=== PATIENT | male | born 1935 | race Caucasian/White ===

== ENCOUNTER 2017-05-27 09:13 | Emergency (ER) | payer MEDICARE, BC ==
[~2017-05-27] VITALS: Ht 182.9 cm; Wt 90.0 kg
[~2017-05-27 09:13] MED LIST: AMOXICILLIN/CL875 MG PO; AMOXICILLIN500 MG OR; AMOXICILLIN500 MG PO; AUGMENTIN875TAB PO; BABY ASPIRIN81 MG OR; BENZONATATE200 MG PO; BETAPACE80 MG OR; FLUTICASONE50 MCG; MECLIZINE25 MG PO; MEDDOSEPAK PO; METHOCARBAM500 MG PO; MOTRIN800 MG; PLAVIX75 MG; SOLU-MEDROL125 MG IM; TAM75CAP OR; VICODIN1 TAB; ZITHROMAX250 MG OR
[2017-05-27] MEDS ORDERED: VITAMIN D31000 UNI1 PO (10:02)
[2017-05-27 10:18] LABS: URINE BILIRUBIN - DIPSTICK NEGATIVE (NEGATIVE); URINE BLOOD DIPSTICK NEGATIVE (NEGATIVE); URINE COLOR YELLOW; URINE GLUCOSE - DIPSTICK NEGATIVE (NEGATIVE); URINE KETONE NEGATIVE (NEGATIVE); URINE LEUK ESTERASE NEGATIVE (NEGATIVE); URINE NITRITE - DIPSTICK NEGATIVE (Negative); URINE PROTEIN - DIPSTICK NEGATIVE (NEG-TRACE); URINE SPECIFIC GRAVITY <=1.005; URINE UROBILINOGEN - DIPSTICK 0.2 E.U./dL (0.2)
[2017-05-27 10:19] LABS: HEMATOCRIT 42.2 % (39.0-50.0); HEMOGLOBIN 14.5 g/dl (14.0-18.0); IMMATURE GRANULOCYTES 0.4 % (0.0-1.0); MEAN CELL VOLUME 84.9 fL CALC (80.0-100.0); MEAN CORPUSCULAR HGB 29.2 pG CALC (26.0-32.0); MEAN CORPUSCULAR HGB CONC 34.4 g/L CALC (32.0-36.0); NEUT# 3.88 thou/uL (1.82-7.42); RED BLOOD COUNT 4.97 mill/uL (4.70-6.10); RED CELL DISTRI WIDTH 12.6 % (11.5-15.5)
[2017-05-27 10:19] LABS: URINE CLARITY CLEAR
[2017-05-27 10:30] LABS: ALBUMIN 4.1 g/dL (3.2-5.0); ALKALINE PHOSPHATASE 82 u/l (38-126); ANION GAP 14 (6-22 (CALC)); BILIRUBIN, TOTAL 0.7 mg/dL (0.0-1.4); BUN 24 mg/dL (8-23); BUN/CREATININE RATIO 24 (12-20 (CALC)); CARBON DIOXIDE 27 mmol/l (22-30); CHLORIDE 104 mmol/l (95-108); GFR > 60 ML/MIN (>=60 (CALC)); GFR FOR AFR.AMER. > 60 ML/MIN (>=60 (CALC)); POTASSIUM 4.2 mmol/l (3.5-5.1); SGOT/AST 29 u/l (19-48); SGPT/ALT 25 u/l (11-66); SODIUM 141 mmol/l (137-146); TOTAL PROTEIN 7.1 g/dL (6.3-8.2)
[2017-05-27 10:42] LABS: MYOGLOBIN 50 ng/mL (0 - 121)
[2017-05-27] MEDS ORDERED: KEFLEX500 MG PO (11:29)
[2017-05-27] MEDS ORDERED: CLONIDINE0.1 MG PO (11:29)
[2017-05-27 11:53] VITALS: BP 137/72
== END 2017-05-27 12:00 | disposition home or self-care (01) ==
LOC: ED 09:13
PROVIDERS: Emergency Medicine
DX: N30.90 Cystitis, unspecified without hematuria (principal); I10 Essential (primary) hypertension; I25.10 Atherosclerotic heart disease of native coronary artery without angina pectoris; I25.2 Old myocardial infarction; Z95.5 Presence of coronary angioplasty implant and graft; R94.31 Abnormal electrocardiogram [ECG] [EKG]

== ENCOUNTER 2022-04-27 15:58 | Emergency (ER) | payer MEDICARE, BC ==
[2022-04-27] VITALS (7 sets, daily range): BP systolic 115–129; BP diastolic 49–62
[~2022-04-27] VITALS: Ht 182.9 cm; Wt 83.9 kg
[~2022-04-27 15:58] MED LIST changes: +CLONIDINE0.1 MG PO; +KEFLEX500 MG PO; +VITAMIN D31000 UNI1 PO
[2022-04-27] MEDS ORDERED: AMOX/K CLAV875 M1 PO (16:57)
[2022-04-27] MEDS ORDERED: ZPAK PO (16:57)
[2022-04-27] MEDS ORDERED: PREDNISONE50 MG PO (17:13)
[2022-04-27] MEDS ORDERED: VENTOLIN HFA108 MCG PO (17:13)
== END 2022-04-27 17:44 | disposition home or self-care (01) ==
LOC: ED 15:58
DX: J18.9 Pneumonia, unspecified organism (principal); I25.10 Atherosclerotic heart disease of native coronary artery without angina pectoris; I25.2 Old myocardial infarction; Z95.5 Presence of coronary angioplasty implant and graft; Z20.822 Contact with and (suspected) exposure to COVID-19